=== PATIENT | male | born 1950 | race Asian ===

== ENCOUNTER 2016-10-14 07:25 | Day surgery (SDC) | payer OTHER ==
[~2016-10-14] VITALS: Ht 157.5 cm; Wt 71.3 kg
[2016-10-14] MEDS ORDERED: JANUVIA (09:15)
[2016-10-14] MEDS ORDERED: AMLODIPINE (09:15)
[2016-10-14] MEDS ORDERED: METFORMIN (09:15)
[2016-10-14] MEDS ORDERED: ASPIRIN (09:15)
[2016-10-14] MEDS ORDERED: ATORVASTATIN (09:15)
[2016-10-14 09:19] VITALS: Ht 157.5 cm; Wt 71.3 kg
[2016-10-14 09:46] VITALS: BP 150/83; PULSE 67; RESP 18
[2016-10-14] MEDS ORDERED: FENTAnyl 50 MCG/ML VIAL ONE (10:30)
[2016-10-14] MEDS ORDERED: MIDAZOLAM 1 MG/ML 2 ML INJ ONE (10:30)
[2016-10-14 10:54] VITALS: BP 123/79; RESP 20
--- NOTE | 2016-10-15 04:52 | GILP ---
DATE OF PROCEDURE: NAME OF PROCEDURE: Colonoscopy. SURGEON: Ham Eubanks MD PREOPERATIVE DIAGNOSIS: Screening colonoscopy. POSTOPERATIVE DIAGNOSES 1. Colonoscopy all the way to the cecum. 2. Internal hemorrhoids. 3. No colon neoplasm was identified. INDICATION FOR THE PROCEDURE: Mr. Wilner Hopper is a 66-year-old who was scheduled for screening co lonoscopy. The procedure and possible complications are well explained to the patient. He understood and conse nted to the procedure. DESCRIPTION OF PROCEDURE: Under the influence of fentanyl and Versed, the colonoscope was passed an d introduced in the rectum, and under direct vision, it was advanced all the way to the cecum. FINDINGS: The patient had internal hemorrhoids. No colon neoplasm was identified. He tolerated the procedure very well and there was no complication from the procedure. At the end o f the procedure, he was awake with stable vital signs and he was discharged home to the care of his family. IMPRESSION: 1. Colonoscopy all the way to the cecum. 2. Internal hemorrhoids. 3. No colon neoplasm was identified. PLAN: Screening colonoscopy in 10 years. Dictated By: HAM OSBORN/DAMIR Conf#: [id number] DID#: [id number]
== END 2016-10-14 13:18 | disposition home or self-care (01) ==
LOC: GIL 07:25
PROVIDERS: ATTEND Internal Medicine Gastroenterology
DX: Z12.11 Encounter for screening for malignant neoplasm of colon (principal); K64.8 Other hemorrhoids; E11.9 Type 2 diabetes mellitus without complications; I10 Essential (primary) hypertension
CPT/HCPCS: 45378; 82962; J2250; J3010